=== PATIENT | male | born 1995 ===

== ENCOUNTER 2017-08-08 18:05 | Emergency (ER) | payer OTHER ==
[~2017-08-08] VITALS: Ht 163.8 cm; Wt 70.1 kg
[2017-08-08 18:13] VITALS: Ht 163.8 cm; Wt 70.1 kg
--- NOTE | 2017-08-08 18:46 | EMERGENCY ROOM VISIT NOTE ---
History First contact with patient: 18:16 Chief Complaint: WOUND RECHECK Stated Complaint: DRAIN TAKEN OUT Nursing Triage Summary: Patient presents for wound recheck Patient states he needs "the drain out of the cyst in my lower back" History of Present Illness The patient is a 22 year old male who presents to the Emergency Room via private vehicle with complaints of "drain taken out". The patient states that 1 week ago he had surgery for recurrent pilonidal cysts. This was performed in [place]. He is from [place], and is visiting a friend here at [facility]. He states that today he received a call from the surgeon who indicated that he should have the drain removed. The patient states that there is pain in the region, but it has been draining well. The drainage amount has decreased over the past few days. He notes normal fevers but he states that they're not significant and he feels otherwise okay. He states that he will be returning to [place] in about one week and at that time is to have a follow-up with the surgeon who performed the surgery. Review of Systems A complete 6-point Review of Systems was discussed with the patient, with pertinent positives and negatives listed in the History of Present Illness. All remaining Review of Systems questions can be considered negative unless otherwise specified. Past Medical/Surgical History Pilonidal Cyst Family History No pertinent. Social History Smoking Status: Never Smoker Patient is from [place] and is currently here at [facility] visiting a friend. Current/Historical Medications Unable to Obtain Active Prescriptions or Reported Meds Physical Exam Vital Signs Date Time Temp Pulse Resp B/P (MAP) Pulse Ox O2 Delivery O2 Flow Rate FiO2 08/08/17 18:54 08/08/17 18:54 37.0 68 16 127/51 97 Room Air 08/08/17 18:13 36.3 90 16 103/67 97 Room Air Physical Exam VITAL SIGNS - Vital signs and nursing notes were reviewed. Stable. Afebrile. Nontoxic tachycardic. GENERAL -22-year-old male appearing his stated age who is in no acute distress. Communicates well with provider and answers questions appropriately. SKIN - the posterior superior sacral region exhibits a well-healed surgical scar with a superior JIL drain extending. There is scant drainage that is serous in the drain itself. This is held in place by 2 sutures. Medical Decision & Procedures Medical Decision Patient was seen and evaluated as above. He is nontoxic in appearance. He presents today with request by his surgeon to have the JIL drain removed. I discussed the case with the attending physician and subsequently the on-call general surgeon. Decision was made to remove the JIL drain. This was without difficulty. The 2 sutures were removed and the drain was gently extracted after pressure was alleviated from the system. There is no drainage. Region was cleansed and dressed with a clean dressing. Patient is to follow-up with surgeon back home. He was educated upon management, educated upon worrisome symptoms which to return, had questions answered prior to discharge, and was discharged home in good condition. In evaluation treatment of this patient following differential diagnoses were entertained: Need for drain removal, infection, among others. Impression Primary Impression: Encounter for wound re-check Additional Impression: Encounter for change or removal of drains Departure Information Dispostion Home / Self-Care Condition GOOD Prescriptions Unable to Obtain Active Prescriptions or Reported Meds Referrals No Doctor, Assigned (PCP) Patient Instructions My [facility] Additional Instructions You were seen in the emergency department for removal of the drain. Please follow-up with the surgeon as you indicated. Please return with any new/concerning symptoms. Problem Qualifiers
[2017-08-08 18:54] VITALS: BP 127/51; PULSE 68; TEMP 37; O2SAT 97
== END 2017-08-08 18:55 | disposition home or self-care (01) ==
LOC: C.EDB 18:09 → C.EDD 18:55
DX: Z48.03 Encounter for change or removal of drains (principal)